=== PATIENT | male | born 1945 | race Caucasian/White ===

== ENCOUNTER 2023-12-07 11:13 | Emergency (ER) | payer OTHER, SELFPAY ==
[2023-12-07 11:15] VITALS: BP 176/81
[2023-12-07] MEDS: LEVAQUIN 500 MG PO (12:26)
[2023-12-07] MEDS: ADACEL 0.5 ML IM (12:26)
--- NOTE | 2023-12-07 13:35 | ED.GENMED ---
History of Present Illness
General
Chief Complaint: Fall
Source: patient and spouse
Exam Limitations: none
Time Seen by Provider: 12/07/23 11:43
Nursing documentation reviewed up to this point in time: agreed with
Travel History
Have you had any contact with someone who has COVID-19?: No
Do you have any symptoms of coronavirus? Fever > 100 degrees, chills, cough, shortness of breath, sore throat, loss of taste or smell, muscle aches, or headache?: No
History of Present Illness
History of Present Illness:
78-year-old male with past medical history of hypertension hyperlipidemia that tripped getting out of his bed hitting the edge of a nightstand with his ear sustained a laceration and presented to the ER did not lose consciousness denies additional
concerns not on blood thinners.
Past History
Past History
ED Past Medical History: HTN
Social History
Tobacco: Non-smoker
Alcohol: None
Family History
Family History: Diabetes and Hypertension
Review of Systems
Review of Systems
Allergies reviewed?: Yes
All Other Systems: ROS reviewed and negative except as documented in HPI and ROS
Phy Exam
Physical Exam
Physical Exam:
GENERAL: Alert , in no apparent distress
EYE: pupils equal and reactive
NECK: Supple, no significant adenopathy.
ENT: Laceration to the right earlobe 2.5 cm in length does not appear to have cross the cartilage. o/p clr, mmm.
CARDIAC: Regular rate and rhythm .
LUNGS: Clear breath sounds bilaterally, no acute respiratory distress, no wheezes/rales/rhonchi
ABDOMEN: Soft, without focal tenderness, no r/g, no cvat
NEUROLOGICAL: Alert and oriented, no focal neuro deficits
SKIN: Warm and dry, skin intact.
MUSCULOSKELETAL: No edema, well perfused.
PSYCH: Normal and appropriate interaction.
Course
Orders/Labs/Results
Orders:
Orders
12/07/23 12:03
CT Head W/o Iv Contrast Urgent
Comment:
Reason For Exam: hit right damaris eof head
LevoFLOXacin [Levaquin] 500 mg PO NOW STA
Tetanus/Diphth/Acelpertussis [Adacel] 0.5 ml IM .ONCE ONE
Vital Signs
Initial and Last Documented VS:
Initial Vital Signs
Temp Pulse Resp BP Pulse Ox
97.5 F 54 18 176/81 99
12/07/23 11:15 12/07/23 11:15 12/07/23 11:15 12/07/23 11:15 12/07/23 11:15
Last Documented Vital Signs
Temp Pulse Resp BP Pulse Ox
97.5 F 54 18 176/81 99
12/07/23 11:15 12/07/23 11:15 12/07/23 11:15 12/07/23 11:15 12/07/23 11:15
Procedures
Laceration Closure
Right Ear:
Status of Wound: clean
Size of Wound in cm: 2.5
Description of Wound Edges: sharp
Preparation: cleaned with saline
Anesthesia: 1% Lidocaine and Digital-Regional
Revision/Debridement: routine- no revision and irrigate-direct pressure
Wound exploration: explored to base- no FB
Type of Closure: single layer closure and interrupted sutures
Skin Closure Material: 5-0 chromic gut
Number of sutures: 8
MDM/Problems Addressed
MDM/Problems Addressed:
78-year-old male presenting to the emergency department after tripping out of bed hitting his ear on a nightstand did not lose consciousness denies additional concerns other than the laceration to his ear. Denies changes in hearing numbness
weakness neck pain or headache not on blood thinners. CT scan confirmed no brain bleed. He was given updated tetanus shot and given a prophylactic dose of Levaquin as he claims that he has had a recent Pseudomonas infection. Otherwise laceration
closed 8 absorbable sutures. Advised for outpatient follow-up return precautions given.
*Critical Care Note
Total Time (30-74mins, 75-104mins- exclusive of procedures): Not Applicable
ED Attending Note
-
Portions of this chart may have been created with voice recognition software.� Occasional wrong word or��sound alike� substitutions may have occurred due to the inherent limitations of voice recognition software.
Discharge Plan
Departure
Patient Disposition: Home (Routine Discharge)
Date of Disposition: 12/07/23
Time of Disposition: 13:38
Patient with high blood pressure during this ER visit?: No
Condition: Good
Covid-19: Not Applicable
Discharge Problem:
Laceration of ear
Instructions: Laceration Repair With Stitches (DC)
Prescriptions:
New
levofloxacin 500 mg tablet
500 mg PO DAILY 2 Days Qty: 2 0RF
No Action
losartan 50 MG tablet
50 mg PO DAILY
metoprolol succinate 50 MG tablet extended release 24 hr
50 mg PO DAILY
docusate sodium [Colace] 100 MG capsule
100 mg PO BIDPRN PRN (Reason: constipation)
loratadine 10 MG tablet
10 mg PO DAILY
cholecalciferol (vitamin D3) 2,000 UNITS tablet
2,000 units PO DAILY
multivitamin with folic acid [Tab-A-Sridevi] 1 TABLET tablet
1 tab PO DAILY
sennosides [senna] 1 TABLET tablet
2 tab PO BID Qty: 0 0RF
acetaminophen 325 MG tablet
650 mg PO Q4HPRN PRN (Reason: mild pain or fever) Qty: 0 0RF
polyethylene glycol 3350 17 GRAMS powder in packet
17 grams PO DAILY Qty: 0 0RF
magnesium hydroxide 30 ML suspension
30 ml PO [id number] PRN (Reason: constipation) Qty: 0 0RF
bisacodyl [OneLAX Bisacodyl] 10 MG suppository
10 mg ME DAILYPRN PRN (Reason: constipation) Qty: 0 0RF
gabapentin 300 MG capsule
600 mg PO TID Qty: 90 0RF
morphine 15 MG tablet extended release
15 mg PO Q12 Qty: 15 0RF
Rx Instructions:
tab 1 q12 h x 5 days then
tab 1 daily x 5 days then stop
bisacodyl 5 MG tablet,delayed release (DR/EC)
10 mg PO DAILYPRN PRN (Reason: constipation) Qty: 0 0RF
morphine 15 MG tablet
15 mg PO Q4HPRN PRN (Reason: pain) Qty: 90 0RF
pantoprazole 40 MG tablet,delayed release (DR/EC)
40 mg PO HS Qty: 30 0RF
Rx Instructions:
may substitute with OTC omeprazole 20 mg daily
Referrals:
Isaac Love MD [Family Provider] -
Activity Restrictions/Additional Instructions:
You came to the emergency department today with concerns of laceration to your ear. This was closed. Please keep the area clean covered and keep pressure on the area to avoid potential cauliflower ear of the next few days. Please follow closely
with the primary care doctor. Return to the emergency department for any worsening, new or concerning symptoms. Please also take Levaquin once daily for the next 2 days for prophylaxis.
Interventions
Interventions:
*Risk Screen - Suicide Last Done: 12/07/23 11:15
*General Assessment Last Done: 12/07/23 11:15
*Neglect/Abuse Screening Last Done: 12/07/23 11:15
*ED COVID-19 Vaccine History Last Done: 12/07/23 11:15
ED-Musculoskeletal Assessment Last Done: 12/07/23 11:36
ED- Neurological Assessment Last Done: 12/07/23 11:36
ED-Skin Assessment Last Done: 12/07/23 11:36
== END 2023-12-07 13:52 | disposition home or self-care (01) ==
LOC: EMR 11:13
PROVIDERS: EMERGENCY PHYSICIAN Emergency Medicine; FAMILY PHYSICIAN Family Medicine
DX: S01.311A Laceration without foreign body of right ear, initial encounter (principal); W06.XXXA Fall from bed, initial encounter; I10 Essential (primary) hypertension; E78.5 Hyperlipidemia, unspecified; M19.90 Unspecified osteoarthritis, unspecified site; Z87.891 Personal history of nicotine dependence
CPT/HCPCS: 99284; 12051; 90471; 70450; 90715

== ENCOUNTER → 2023-12-26 09:34 | Outpatient (REF) | payer OTHER, SELFPAY ==
[2023-12-26 11:24] LABS: Erythrocyte Sed Rate 6 mm/hour (0-20)
[2023-12-28 01:12] LABS: ANA, IgG Reflex to HEp-2 None Detected (None Detected)
[2023-12-28 07:59] LABS: Myeloperoxidase Antibody 0 AU/mL (0-19); Serine Protease-3, IgG 0 AU/mL (0-19)
== END ==
LOC: RAD 09:34
PROVIDERS: ATTENDING PHYSICIAN Internal Medicine Critical Care Medicine; FAMILY PHYSICIAN Family Medicine
DX: R05.3 Chronic cough (principal); R93.89 Abnormal findings on diagnostic imaging of other specified body structures; I77.6 Arteritis, unspecified
CPT/HCPCS: 36415; 71250; 83516; 85652; 86038; 86140